=== PATIENT | female | born 1965 | race Caucasian/White ===

== ENCOUNTER 2018-11-08 20:17 | Emergency (ER) | payer OTHER, MEDICAID ==
[~2018-11-08] VITALS: Ht 162.6 cm; Wt 104.3 kg
[2018-11-08 20:33] VITALS: Ht 162.6 cm; Wt 104.3 kg
[2018-11-08 21:16] LABS: BASOPHIL % 0.6 % (0-2)
[2018-11-08 21:17] LABS: PLATELET COUNT 64 x10^3mcL (130-400); RED CELL DISTRIBUTION WIDTH 15.2 % (11.5-14.5)
[2018-11-08 21:19] LABS: CALCIUM 9.3 mg/dL (8.5-10.1); CARBON DIOXIDE 23.7 mmol/L (21-32); CHLORIDE SERUM 104 mmol/L (98-107); CREATININE SERUM 0.8 mg/dL (0.6-1.0); GFR1 > 60 mL/min; GLUCOSE SERUM 247 mg/dL (74-106); POTASSIUM SERUM 3.7 mmol/L (3.5-5.1); SODIUM SERUM 140 mmol/L (136-145)
[2018-11-08 21:25] LABS: ALBUMIN 3.2 g/dL (3.4-5.0); ALKALINE PHOSPHATASE 130 U/L (46-116); ALT/SGPT 42 U/L (14-59); AST/SGOT 16 U/L (15-37); BILIRUBIN TOTAL 0.5 mg/dL (0.20-1.00); LIPASE 855 IU/L (73-393); TOTAL PROTEIN, SERUM 6.9 g/dL (6.4-8.2)
[2018-11-08 23:07] VITALS: BP 116/75
== END 2018-11-08 23:07 ==
LOC: ED 20:17
PROVIDERS: Emergency Medicine
DX: R07.89 Other chest pain (principal); J45.909 Unspecified asthma, uncomplicated; E11.9 Type 2 diabetes mellitus without complications; Z90.49 Acquired absence of other specified parts of digestive tract; Z90.89 Acquired absence of other organs; Z88.1 Allergy status to other antibiotic agents; Z88.8 Allergy status to other drugs, medicaments and biological substances; Z88.0 Allergy status to penicillin; Z88.2 Allergy status to sulfonamides; Z86.73 Personal history of transient ischemic attack (TIA), and cerebral infarction without residual deficits; Z98.890 Other specified postprocedural states
CPT/HCPCS: J1885; Q0092